=== PATIENT | male | born 2000 | race Caucasian/White ===

== ENCOUNTER 2021-07-28 18:17 | Emergency (ER) | payer OTHER, SELFPAY ==
[2021-07-28 18:19] VITALS: BP 116/84; PULSE 84; RESP 14; TEMP 36.6; O2SAT 99; BMI 22.8
--- NOTE | 2021-07-28 20:13 | EDS_ITS ---
HPI History of Present Illness Chief Complaint: Laceration Informant: patient and parent Narrative Narrative: 21-year-old male was playing soccer today when another player collided with his face causing a right upper lip laceration. He notes a headache. His team does have concussion protocols. [facility] Medical History Patellar tendon rupture Home Medications penicillin V potassium 500 mg PO 4X/DAY #20 tab 07/28/21 [Rx Last Taken Unknown] Allergy/AdvReac Type Severity Reaction Status Date / Time No Known Allergies Allergy Verified 07/28/21 18:18 Social History (Updated 07/28/21 @ 20:[address] Gomez Costello DO) Smoking Status: Never smoker substance use type: does not use ROS ROS ED Constitutional Constitutional ED: Denies chills or weight loss Eyes Eyes: Denies change in vision or diplopia ENT ENT ED: Reports other Details: Lip laceration ; Denies ear pain, rhinorrhea or sore throat Cardiovascular Cardiovascular: Denies chest pain, orthopnea, palpitations or racing heartbeat Respiratory/Chest Respiratory/Chest: Denies cough, dyspnea or orthopnea Gastrointestinal Gastrointestinal: Denies abdominal pain, diarrhea, nausea or vomiting Genitourinary Genitourinary ED: Denies dysuria, hematuria or urinary frequency Musculoskeletal Musculoskeletal: Denies arthralgias or myalgias Integumentary Denies abscess or rash Neurologic Neurologic: Denies headache(s) or weakness Psychiatric Psychiatric: Denies anxiety, depression, suicidal ideation or suicidal thoughts Endocrine Endocrinology: Denies polydipsia, polyphagia or polyuria Allergic/Immunologic Allergic/Immunologic ED: Denies mouth swelling, tongue swelling or urticaria EXAM Physical Exam Const Vital Signs: 07/28/21 18:19 Temperature 98 F Temperature Source Temporal Pulse Rate 84 Respiratory Rate 14 Blood Pressure 116/84 H Blood Pressure Mean 94 Pulse Ox 99 Oxygen Delivery Method Room Air Positive well nourished and well developed General Appearance ED: well developed HEENT Reports normocephalic, head/scalp atraumatic, TM's clear and moist mucous membranes HEENT Narrative: There is a 1 and half centimeter irregular laceration of the right upper inner lip. There is no dental trauma. No malocclusion. trauma Tympanic Membrane ED: Yes TM's clear Eyes PERRL and EOMs intact bilaterally Neck no lymphadenopathy, supple and no JVD Resp normal respiratory effort and clear to auscultation bilaterally Cardio regular rate, regular rhythm and no murmurs GI normal to inspection, nondistended, normoactive bowel sounds and non-tender Palpation: soft Back/Spine no CVA tenderness and normal ROM Extremity normal to inspection General Extremety ED: Negative for edema General Extremity: Negative for edema Neuro oriented x3 and CN's II-XII intact bilaterally Sensorium / Orientation: alert Motor Exam: strength 5/5 throughout Psych mental status grossly normal Mood & Affect: Negative for depressed or tearful Skin no rashes or lesions noted and no wounds MDM MDM MDM Narrative Medical decision making narrative: The wound was locally anesthetized using 1% lidocaine. It was washed with saline. Was closed using a total of 3 simple erupted 5-0 Vicryl sutures. Wound care discussed with patient and father. He will be placed on penicillin return if worsening or concerns Discharge Plan Triage Chief Complaint: Laceration ED Provider: Gomez Costello Dx/Rx/DC Orders Clinical Impression: Laceration of lip Instructions: ED Laceration, Lip or Mouth Prescriptions: New penicillin V potassium 250 MG tablet 500 mg PO 4X/DAY Qty: 20 RF: 0 Activity Restrictions/Additional Instructions: Please follow-up with your net trainer for concussion protocol. Your stitches are dissolvable. As we talked about please avoid small particle foods. The antibiotic that is prescribed as prophylaxis against infection. Disposition Disposition: Home, Self Care
[2021-07-28] MEDS: Lidocaine 1% (20 ml mdv) 20 ML Vial INFILT (20:31)
[2021-07-28 20:34] VITALS: BP 122/74; PULSE 78; RESP 17
== END 2021-07-28 20:35 | disposition home or self-care (01) ==
PROVIDERS: Emergency Provider Emergency Medicine
DX: S01.511A Laceration without foreign body of lip, initial encounter (principal); W51.XXXA Accidental striking against or bumped into by another person, initial encounter; Y93.66 Activity, soccer; Y92.9 Unspecified place or not applicable; Y99.8 Other external cause status
CPT/HCPCS: 12011; 99283